=== PATIENT | male | born 1995 | race Caucasian/White ===

== ENCOUNTER 2019-08-15 16:39 | Emergency (ER) | payer OTHER ==
[2019-08-15 16:46] VITALS: BP 121/65
[2019-08-15 16:59] LABS: RAPID STREP SCREEN Negative (Negative)
[2019-08-15] MEDS ORDERED: DEXAMETHASONE 10 MG/ML VIAL PO STA (17:22)
--- NOTE | 2019-08-15 17:28 | ED Physician Documentation ---
History of Present Illness - Stated complaint Stated Complaint: SORE THROATX3 DAYS - Chief complaint Chief Complaint: Heent - History obtained from History obtained from: Patient, Family - History of Present Illness Timing: How many days ago (3) Pain level max: 8 Pain level now: 6 - Additonal information Additional information: 23-year-old male presents to the emergency department for sore throat for the past 3 days. No fevers. Does have rhinorrhea, congestion and a dry cough. No vomiting. No abdominal pain. No chest pain. Worse with swallowing. Better with rest. Immunizations up-to-date. Review of Systems Constitutional: denies: Fever, Chills Nose: reports: Rhinorrhea / runny nose, Congestion Throat: reports: Sore throat Cardiac: denies: Chest pain / pressure Respiratory: reports: Cough GI: denies: Vomiting, Diarrhea Skin: denies: Rash PD PAST MEDICAL HISTORY - Past Medical History Past Medical History: Yes Cardiovascular: None Respiratory: None Neuro: None Endocrine/Autoimmune: None GI: None : None HEENT: None Psych: Anxiety Musculoskeletal: None Derm: None - Past Surgical History Past Surgical History: No - Allergies Allergies/Adverse Reactions: Allergies Allergy/AdvReac Type Severity Reaction Status Date / Time No Known Drug Allergies Allergy Verified 08/15/19 16:43 - Social History Does the pt smoke?: No Smoking Status: Never smoker Does the pt drink ETOH?: No Does the pt have substance abuse?: No - Immunizations Immunizations are current?: Yes - POLST Patient has POLST: No PD ED PE NORMAL - Vitals Vital signs reviewed: Yes - General General: Alert and oriented X 3, No acute distress, Well developed/nourished - HEENT HEENT: PERRL, Ears normal, Moist mucous membranes, Other (Posterior pharyngeal erythema without tonsillar exudates. Uvula midline. Normal phonation. No trismus.) - Neck Neck: Supple, no meningeal sign, No adenopathy - Cardiac Cardiac: RRR - Respiratory Respiratory: No respiratory distress, Clear bilaterally - Abdomen Abdomen: Soft, Non tender, Non distended - Derm Derm: Warm and dry, No rash - Neuro Neuro: Alert and oriented X 3 - Psych Psych: Normal mood, Normal affect Results - Vitals Vitals: Vital Signs - 24 hr 08/15/19 16:43 Temperature 36.8 C Heart Rate 70 Respiratory 18 Rate Blood Pressure 121/65 O2 Saturation 100 Oxygen O2 Source Room air - Labs Labs: Laboratory Tests 08/15/19 16:45 Group A Strep Rapid Negative PD MEDICAL DECISION MAKING - ED course Complexity details: reviewed results, considered differential, d/w patient ED course: Patient with what appears to be a viral pharyngitis. He is well-appearing, nontoxic. Negative rapid strep. Given dexamethasone. We will continue supportive care and have him follow-up with his doctor. Patient counseled regarding signs and symptoms for which I believe and urgent re-evaluation would be necessary. Patient with good understanding of and agreement to plan and is comfortable going home at this time This document was made in part using voice recognition software. While efforts are made to proofread this document, sound alike and grammatical errors may occur. Departure - Departure Disposition: 01 Home, Self Care Clinical Impression: Viral pharyngitis Condition: Good Instructions: ED Pharyngitis Viral Follow-Up: JUANA NUNEZ [Primary Care Provider] - As Needed Comments: Drink plenty of fluids and rest. Return if you worsen. Continue Motrin and Tylenol as needed for pain. Forms: Activity restrictions
== END 2019-08-15 17:41 | disposition home or self-care (01) ==
LOC: ED 16:39
DX: J02.8 Acute pharyngitis due to other specified organisms (principal); B97.89 Other viral agents as the cause of diseases classified elsewhere
CPT/HCPCS: 87070; 87430; 99283; 99284

== ENCOUNTER 2019-08-26 19:11 | Emergency (ER) | payer OTHER ==
[2019-08-26 19:20] VITALS: BP 119/56
--- NOTE | 2019-08-26 19:22 | ED Physician Documentation ---
History of Present Illness - Stated complaint Stated Complaint: FEVER,SORE/SWOLLEN THROAT - Chief complaint Chief Complaint: Heent PD PAST MEDICAL HISTORY - Past Medical History Cardiovascular: None Respiratory: None Neuro: None Endocrine/Autoimmune: None GI: None : None HEENT: None Psych: Anxiety Musculoskeletal: None Derm: None - Past Surgical History Past Surgical History: No - Allergies Allergies/Adverse Reactions: Allergies Allergy/AdvReac Type Severity Reaction Status Date / Time No Known Drug Allergies Allergy Verified 08/15/19 16:43 - Social History Does the pt smoke?: No Smoking Status: Never smoker Does the pt drink ETOH?: No Does the pt have substance abuse?: No - Immunizations Immunizations are current?: Yes - POLST Patient has POLST: No Results - Vitals Vitals: Vital Signs - 24 hr 08/26/19 19:17 Temperature 37.6 C H Heart Rate 110 H Respiratory 16 Rate Blood Pressure 119/56 L O2 Saturation 100 Oxygen O2 Source Room air
[2019-08-26] MEDS: IBUPROFEN 800 MG TABLET PO STA ×2 (19:31→19:32)
[2019-08-26] MEDS ORDERED: CHERRY SYRUP 10 ML UDC PO ONE (19:38)
[2019-08-26] MEDS ORDERED: DEXAMETHASONE 10 MG/ML VIAL PO STA (19:38)
[2019-08-26 19:46] LABS: RAPID STREP SCREEN Negative (Negative)
--- NOTE | 2019-08-26 19:56 | ED Physician Documentation ---
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 He did not try any treatment prior to arrival he denies any headache or neck pain or rashes he reports he is able to swallow but it "hurts".) Review of Systems Constitutional: reports: Reviewed and negative Eyes: reports: Reviewed and negative Ears: reports: Reviewed and negative Nose: reports: Reviewed and negative Throat: reports: Sore throat Cardiac: reports: Reviewed and negative Respiratory: reports: Reviewed and negative GI: reports: Reviewed and negative : reports: Reviewed and negative Skin: reports: Reviewed and negative Musculoskeletal: reports: Reviewed and negative Neurologic: reports: Reviewed and negative Psychiatric: reports: Reviewed and negative Endocrine: reports: Reviewed and negative Immunocompromised: reports: Reviewed and negative PD PAST MEDICAL HISTORY - Past Medical History Cardiovascular: None Respiratory: None Neuro: None Endocrine/Autoimmune: None GI: None : None HEENT: None Psych: Anxiety Musculoskeletal: None Derm: None - Past Surgical History Past Surgical History: No - Allergies Allergies/Adverse Reactions: Allergies Allergy/AdvReac Type Severity Reaction Status Date / Time No Known Drug Allergies Allergy Verified 08/15/19 16:43 - Social History Does the pt smoke?: No Smoking Status: Never smoker Does the pt drink ETOH?: No Does the pt have substance abuse?: No - Immunizations Immunizations are current?: Yes - POLST Patient has POLST: No PD ED PE NORMAL - Vitals Vital signs reviewed: Yes - General General: Alert and oriented X 3, No acute distress - HEENT HEENT: PERRL, Other (TMs are clear bilaterally nares are patent oropharynx is erythematous but no exudate uvula midline tolerating secretions floor the mouth is soft there is no anterior posterior cervical lymphadenopathy trachea midline no meningeal signs.normal voice.) - Neck Neck: Supple, no meningeal sign - Cardiac Cardiac: RRR, No murmur - Respiratory Respiratory: Clear bilaterally - Abdomen Abdomen: Normal bowel sounds, Soft, Non tender, Non distended - Derm Derm: Warm and dry - Extremities Extremities: No deformity - Neuro Neuro: Alert and oriented X 3 - Psych Psych: Normal mood, Normal affect Results - Vitals Vitals: Vital Signs - 24 hr 08/26/19 19:17 Temperature 37.6 C H Heart Rate 110 H Respiratory 16 Rate Blood Pressure 119/56 L O2 Saturation 100 Oxygen O2 Source Room air - Labs Labs: Laboratory Tests 08/26/19 19:24 Group A Strep Rapid Negative Departure - Departure Disposition: Home, Self Care Clinical Impression: Viral pharyngitis Condition: Good Instructions: ED Pharyngitis Viral Follow-Up: JUANA NUNEZ [Primary Care Provider] - Tomorrow
== END 2019-08-26 20:40 | disposition home or self-care (01) ==
LOC: ED 19:11
DX: J02.8 Acute pharyngitis due to other specified organisms (principal)
CPT/HCPCS: 87070; 87430; 99283; 99284; A9270

== ENCOUNTER 2019-11-26 17:37 | Emergency (ER) | payer OTHER ==
[2019-11-26 17:44] VITALS: BP 121/69
[2019-11-26 18:00] LABS: RAPID STREP SCREEN Negative (Negative)
--- NOTE | 2019-11-26 18:15 | ED Physician Documentation ---
History of Present Illness - Stated complaint Stated Complaint: SORE THROAT,DIFFICULTY SWALLOWING - Chief complaint Chief Complaint: Heent - History obtained from History obtained from: Patient (3 to 4 days of sore throat, mild runny nose, no cough. Subjective fevers positive.) Review of Systems Constitutional: reports: Fever Nose: reports: Rhinorrhea / runny nose Throat: reports: Sore throat Respiratory: denies: Cough GI: denies: Vomiting PD PAST MEDICAL HISTORY - Past Medical History Past Medical History: Yes Cardiovascular: None Respiratory: None Neuro: None Endocrine/Autoimmune: None GI: None : None HEENT: None Psych: Anxiety Musculoskeletal: None Derm: None - Past Surgical History Past Surgical History: No - Allergies Allergies/Adverse Reactions: Allergies Allergy/AdvReac Type Severity Reaction Status Date / Time No Known Drug Allergies Allergy Verified 08/15/19 16:43 - Social History Does the pt smoke?: No Smoking Status: Never smoker Does the pt drink ETOH?: No Does the pt have substance abuse?: No - Immunizations Immunizations are current?: Yes - POLST Patient has POLST: No PD ED PE NORMAL - Vitals Vital signs reviewed: Yes - General General: Alert and oriented X 3, No acute distress - HEENT HEENT: Other (Exudative tonsillitis without anterior or posterior cervical adenopathy. It is symmetric.) - Neuro Neuro: Alert and oriented X 3, Normal speech Results - Vitals Vitals: Vital Signs - 24 hr 11/26/19 17:41 Temperature 36.8 C Heart Rate 81 Respiratory 18 Rate Blood Pressure 121/69 O2 Saturation 99 Oxygen O2 Source Room air - Labs Labs: Laboratory Tests 11/26/19 11/26/19 17:47 18:20 Infectious [place] Assay NEGATIVE Group A Strep Rapid Negative Departure - Departure Disposition: Home, Self Care Clinical Impression: Tonsillitis Condition: Good Record reviewed to determine appropriate education?: Yes Instructions: ED Peritonsillar Infec Abx No I andD Comments: Follow-up with your doctor the end of the week if not better, return for new or worsening symptoms. Forms: Activity restrictions
[2019-11-26] MEDS ORDERED: PENICILLIN G BENZATHINE 600,000 UNIT/ML SYRINGE IM STA (18:35)
== END 2019-11-26 18:50 | disposition home or self-care (01) ==
LOC: ED 17:37
DX: J03.90 Acute tonsillitis, unspecified (principal)
CPT/HCPCS: 36415; 86308; 87070; 87077; 87430; 96372; 99283